=== PATIENT | female | born 2000 | race Caucasian/White ===

== ENCOUNTER 2021-04-05 17:24 | Emergency (ER) | payer OTHER ==
[2021-04-05] MEDS ORDERED: MEDROL 4MG DOSEP4 MG PO (18:46)
[2021-04-05] MEDS ORDERED: AUVI-Q0.1 MG/0.1 SC (19:20)
== END 2021-04-05 20:05 | disposition home or self-care (01) ==
LOC: FER 17:24
DX: T78.05XA Anaphylactic reaction due to tree nuts and seeds, initial encounter (principal)
CPT/HCPCS: J1200; J2930; J7030